=== PATIENT | female | born 1970 | race Caucasian/White ===

== ENCOUNTER 2018-07-07 21:15 | Emergency (ER) | payer MEDICARE, MEDICAID ==
--- NOTE | 2018-07-07 21:24 | EDM.PDOC ---
ED HPI GENERAL MEDICAL PROBLEM - General Chief Complaint: Back Pain or Injury Stated Complaint: LEFT SHOULDER & BACK PAIN Time Seen by Provider: 07/07/18 21:24 - History of Present Illness INITIAL COMMENTS - FREE TEXT/NARRATIVE: 47-year-old female presents emergency room with left upper back pain started this morning when she got up. Patient has not had regular problems like this in the past she's taken a couple of doses of Tylenol without much success. She does not have a number tingling into her left arm but at times she has muscle pain that goes into her left arm. She has no breathing difficulties or shortness of breath no chest pain chest pressure. She denies any trauma. I have reviewed her med list and she's no longer on some of the meds listed including the hydrocodone acetaminophen. Left Posterior Shoulder Pain Score (Numeric/FACES): 10 - Related Data Allergies Allergy/AdvReac Type Severity Reaction Status Date / Time gluten Allergy Itching Verified 04/07/16 09:23 house dust Allergy Itching Verified 04/07/16 09:23 weed pollen Allergy Respiratory Verified 04/07/16 09:23 Distress wheat Allergy Itching Verified 04/07/16 09:23 Home Meds: Home Meds Azelastine [Astelin Nasal Soln] 2 sprays CARLOS BID 07/08/13 [History] Calcium Carbonate/Vitamin D3 [Calcium 600 + Vit D 400] 1 each PO TID 07/08/13 [ History] Docusate Sodium [Doc-Q-Lace] 200 mg PO DAILY 07/08/13 [History] Donepezil [Aricept] 10 mg PO BEDTIME 07/08/13 [History] Fenofibric Acid (Choline) [Fenofibric Acid] 45 mg PO BEDTIME 07/08/13 [History] Ferrous Sulfate 325 mg PO BID 07/08/13 [History] Fish Oil/[place]-3 Fatty Acids [Fish Oil 1,000 MG] 1 each PO MOWEFR 07/08/13 [ History] Folic Acid 800 mcg PO DAILY 07/08/13 [History] Nystatin [Nystop] 30 gm TOP BID PRN 07/08/13 [History] Omeprazole 20 mg PO BID 07/08/13 [History] Triamcinolone Acetonide [Triamcinolone Acetonide 0.5%] 1 dose TOP BID PRN [History] Cholecalciferol (Vitamin D3) [Vitamin D3] 1,000 units PO BID 01/17/14 [History] Cetirizine [ZyrTEC] 10 mg PO DAILY 07/31/15 [History] Vit E Acetate/Gly/Dimeth/Water [Cetaphil Moisturizing Lotion] 1 applic TOP BID 07/31/15 [History] atorvaSTATin [Lipitor] 40 mg PO BEDTIME 07/31/15 [History] diphenhydrAMINE HCl [Complete Allergy] 25 mg PO Q6HR PRN 07/31/15 [History] Acetaminophen [Tylenol] 1 - 2 tab PO Q4HR PRN 04/06/16 [History] D-Methorphan Hb/P-Ephed HCl/Cp [Pedia Relief Cough-Cold] 4 tsp PO Q4HR PRN 04/06 [History] Levothyroxine 150 mcg PO DAILY 04/06/16 [History] Mag Hydrox/Al Hydrox/Simeth [Maalox Maximum Strength Susp] 2 - 4 tsp PO Q2HR PRN 04/06/16 [History] Magnesium Hydroxide [Milk of Magnesia] 2 - 4 tbsp PO ASDIRECTED PRN 04/06/16 [ History] Mineral Oil/I-Prop Myr/Water [Minerin] 1 applic TOP BID 04/06/16 [History] Acetaminophen/HYDROcodone [[place] 325-5 MG] 1 - 2 tab PO Q4H PRN #50 tablet 04/09 [Rx] Bisacodyl [Dulcolax] 5 mg PO DAILY PRN #0 tablet 04/09/16 [Rx] Cyclobenzaprine [Flexeril] 10 mg PO TID PRN #30 tablet 04/09/16 [Rx] Docusate Sodium [Colace] 100 mg PO BID cap 04/09/16 [Rx] Famotidine [Pepcid] 20 mg PO Q12H tablet 04/09/16 [Rx] Magnesium Hydroxide [Milk of Magnesia] 30 ml PO BID PRN #0 cup 04/09/16 [Rx] Multivitamins,Therapeutic [Thera] 1 each PO DAILY tablet 04/09/16 [Rx] Ondansetron [Zofran ODT] 4 mg PO Q6H PRN #20 tab.dis 04/09/16 [Rx] Rivaroxaban [Xarelto] 10 mg PO DAILY #33 tablet 04/09/16 [Rx] Sennosides [Senna] 8.6 mg PO BID PRN #0 tablet 04/09/16 [Rx] Cyclobenzaprine [Flexeril] 10 mg PO BEDTIME #5 tab 07/07/18 [Rx] Past Medical History HEENT History: Reports: Allergic Rhinitis, Hard of Hearing, Other (See Below) Other HEENT History: bilateral hearing loss, perforation of tympanic membrane Cardiovascular History: Reports: High Cholesterol Respiratory History: Reports: Sleep Apnea Gastrointestinal History: Reports: GERD, Other (See Below) Other Gastrointestinal History: celiac disease Musculoskeletal History: Reports: Back Pain, Chronic, Other (See Below) Other Musculoskeletal History: L patellar dislocation, bunions, spondylolitheisis Neurological History: Reports: Alzheimers Disease, Other (See Below) Other Neuro History: defects, mental retardation Psychiatric History: Reports: Learning Disability Endocrine/Metabolic History: Reports: Hypothyroidism, Vitamin D Deficiency, Other (See Below) Other Endocrine/Metabolic History: grave's disease Hematologic History: Reports: Anemia, Other (See Below) Other Hematologic History: b12 deficiency, leukocytopenia Oncologic (Cancer) History: Reports: Lymphoma, Other (See Below) Other Oncologic History: small bowel lymphoma Dermatologic History: Reports: Other (See Below) Other Dermatologic History: lichen planus - Past Surgical History GI Surgical History: Reports: Cholecystectomy, Colonoscopy, EGD, ERCP, Hernia Repair/Other - History Comment History Comment: family thought rods in back- NO rods visialized on lumbar xrays. Proceed with spinal for post op pain ED ROS GENERAL - Review of Systems Review Of Systems: See Below Constitutional: Reports: No Symptoms HEENT: Reports: No Symptoms Respiratory: Reports: No Symptoms Cardiovascular: Reports: No Symptoms GI/Abdominal: Reports: No Symptoms : Reports: No Symptoms ED EXAM, UPPER BACK/NECK PAIN - Physical Exam Exam: See Below Exam Limited By: No Limitations General Appearance: Alert, No Apparent Distress Head Exam: Atraumatic, Normocephalic, Other Neck Exam: Non-Tender, Full Range of Motion, Normal Alignment, Normal Inspection GI/Abdominal: Normal Bowel Sounds, Soft, Non-Tender (Female) Exam: Normal Bimanual Exam Back Exam: Other (At the upper margin of her left scapula she has some very tight muscle palpation of this elicits her symptoms.) Extremities: Normal Inspection, No Pedal Edema Course - Vital Signs Last Recorded V/S: Last Vital Signs Temp 36.3 C 07/07/18 21:23 Pulse 82 07/07/18 21:23 Resp 18 07/07/18 21:23 BP 124/81 07/07/18 21:23 Pulse Ox 95 07/07/18 21:23 - Orders/Labs/Meds Meds: Medications Discontinued Medications Generic Name Dose Route Start Last Admin Trade Name Katherine PRN Reason Stop Dose Admin Cyclobenzaprine HCl 10 mg 07/07/18 21:36 07/07/18 21:40 Flexeril PO 07/07/18 21:37 10 mg ONETIME ONE Administration Departure - Departure Time of Disposition: 21:38 Disposition: Home, Self-Care 01 Clinical Impression: Thoracic myofascial strain - Discharge Information Prescriptions: Cyclobenzaprine [Flexeril] 10 mg PO BEDTIME #5 tab Referrals: PCP,None [Primary Care Provider] - Forms: ED Department Discharge Additional Instructions: Return to the emergency room with any questions problems worsening symptoms. Use Tylenol 650 mg every 4-6 hours as needed for discomfort. Use the Flexeril, this is a muscle relaxant also called cyclobenzaprine, these one at bedtime. Follow-up with your regular doctor at the end of this week or early next week if needed.
[2018-07-07 21:27] VITALS: BP 124/81
[2018-07-07] MEDS ORDERED: Cyclobenzaprine 10 MG Tab PO ONE (21:36)
== END 2018-07-07 21:52 | disposition home or self-care (01) ==
LOC: JD.ED 21:15
DX: S29.012A Strain of muscle and tendon of back wall of thorax, initial encounter (principal); E78.00 Pure hypercholesterolemia, unspecified; K21.9 Gastro-esophageal reflux disease without esophagitis; E03.9 Hypothyroidism, unspecified; D64.9 Anemia, unspecified; Z79.899 Other long term (current) drug therapy; Z91.018 Allergy to other foods; Z91.09 Other allergy status, other than to drugs and biological substances; X58.XXXA Exposure to other specified factors, initial encounter
CPT/HCPCS: 99283; A9270

== ENCOUNTER 2019-04-02 09:36 | Emergency (ER) | payer MEDICARE, MEDICAID ==
[2019-04-02 10:03] VITALS: BP 129/81; PULSE 74
[2019-04-02] MEDS ORDERED: Fluorescein 1 MG Ophth Strip EYERT ONE (10:39)
[2019-04-02] MEDS ORDERED: Proparacaine 0.5% Ophth Soln 15 ML Bottle EYERT ONE (10:39)
--- NOTE | 2019-04-02 10:53 | EDM.PDOC ---
ED HPI GENERAL MEDICAL PROBLEM - General Chief Complaint: Eye Problems Stated Complaint: R EYE REDNESS/SWELLING/PAIN Time Seen by Provider: 04/02/19 10:05 Source of Information: Reports: Patient, Other (carefiver) History Limitations: Reports: No Limitations - History of Present Illness INITIAL COMMENTS - FREE TEXT/NARRATIVE: The patient presents with right eye pain and redness. She woke up with this. 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 She is on refresh eye drops and fluoromethalone drops. She had the surgery in [place] but she sees Dr Navas in [place]. She also says she has some blurry vision with this. She has no headache, fever, chills, cough, congestion or runny nose. She has no chest pain, shortness of breath, abdominal pain, nausea or vomiting. Onset: Gradual Duration: Hour(s): Location: Reports: Other (Right eye) Quality: Reports: Sharp Severity: Moderate Improves with: Reports: None Worsens with: Reports: None Associated Symptoms: Reports: No Other Symptoms Right Eye Pain Score (Numeric/FACES): 5 - Related Data Allergies Allergy/AdvReac Type Severity Reaction Status Date / Time gluten Allergy Itching Verified 04/02/19 10:03 house dust Allergy Itching Verified 04/02/19 10:03 weed pollen Allergy Respiratory Verified 04/02/19 10:03 Distress wheat Allergy Itching Verified 04/02/19 10:03 Home Meds: Home Meds Azelastine [Astelin Nasal Soln] 2 sprays CARLOS BID 07/08/13 [History] Calcium Carbonate/Vitamin D3 [Calcium 600 + Vit D 400] 1 each PO TID 07/08/13 [ History] Docusate Sodium [Doc-Q-Lace] 200 mg PO DAILY 07/08/13 [History] Donepezil [Aricept] 10 mg PO BEDTIME 07/08/13 [History] Ferrous Sulfate 325 mg PO BID 07/08/13 [History] Fish Oil/[place]-3 Fatty Acids [Fish Oil 1,000 MG] 1 each PO MOWEFR 07/08/13 [ History] Folic Acid 800 mcg PO DAILY 07/08/13 [History] Omeprazole 40 mg PO DAILY 07/08/13 [History] Triamcinolone Acetonide [Triamcinolone Acetonide 0.5%] 1 dose TOP BID PRN [History] Cholecalciferol (Vitamin D3) [Vitamin D3] 2,000 units PO BID 01/17/14 [History] Cetirizine [ZyrTEC] 10 mg PO DAILY 07/31/15 [History] atorvaSTATin [Lipitor] 40 mg PO BEDTIME 07/31/15 [History] diphenhydrAMINE HCl [Complete Allergy] 25 mg PO Q6HR PRN 07/31/15 [History] Acetaminophen [Tylenol] 1 - 2 tab PO Q4HR PRN 04/06/16 [History] Chlorpheniramin/Pseudoephed/Dm [Pedia Relief Cough-Cold] 4 tsp PO Q4HR PRN 04/06 [History] Levothyroxine 150 mcg PO ASDIRECTED 04/06/16 [History] Mag Hydrox/Al Hydrox/Simeth [Maalox Maximum Strength Susp] 2 - 4 tsp PO Q2HR PRN 04/06/16 [History] Magnesium Hydroxide [Milk of Magnesia] 2 - 4 tbsp PO ASDIRECTED PRN 04/06/16 [ History] Mineral Oil/I-Prop Myr/Water [Minerin] 1 applic TOP BID 04/06/16 [History] Celecoxib 200 mg PO DAILY 04/02/19 [History] Fluorometholone [Fluorometholone 0.1% Ophth Susp] 1 drop OP QID 04/02/19 [ History] Levothyroxine 75 mcg PO ASDIRECTED 04/02/19 [History] Oseltamivir Phosphate 25 gm PO DAILY 04/02/19 [History] Parab/Cet Alc/Stryl Alc/Pg/Sls [Cetaphil Daily Facial Cleanser] 0 ml TP DAILY [History] Polyvinyl Alcohol/Povidone/Pf [Refresh Classic Eye Drops] 1 drop OP QID [History] Past Medical History HEENT History: Reports: Allergic Rhinitis, Hard of Hearing, Other (See Below) Other HEENT History: bilateral hearing loss, perforation of tympanic membrane Cardiovascular History: Reports: High Cholesterol Respiratory History: Reports: Sleep Apnea Gastrointestinal History: Reports: GERD, Other (See Below) Other Gastrointestinal History: celiac disease Genitourinary History: Reports: None 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 Musculoskeletal History: Reports: Back Pain, Chronic, Other (See Below) Other Musculoskeletal History: L patellar dislocation, bunions, spondylolitheisis Neurological History: Reports: Alzheimers Disease, Other (See Below) Other Neuro History: defects, mental retardation Psychiatric History: Reports: Learning Disability Endocrine/Metabolic History: Reports: Hypothyroidism, Vitamin D Deficiency, Other (See Below) Other Endocrine/Metabolic History: grave's disease Hematologic History: Reports: Anemia, Other (See Below) Other Hematologic History: b12 deficiency, leukocytopenia Immunologic History: Reports: None Oncologic (Cancer) History: Reports: Lymphoma, Other (See Below) Other Oncologic History: small bowel lymphoma Dermatologic History: Reports: Other (See Below) Other Dermatologic History: lichen planus - Infectious Disease History Infectious Disease History: Reports: None - Past Surgical History Head Surgeries/Procedures: Reports: None HEENT Surgical History: Reports: Eye Surgery Other HEENT Surgeries/Procedures: Right Cornea Transplant GI Surgical History: Reports: Cholecystectomy, Colonoscopy, EGD, ERCP, Hernia Repair/Other Musculoskeletal Surgical History: Reports: Other (See Below) Other Musculoskeletal Surgeries/Procedures:: Left Hip Surgery - History Comment History Comment: family thought rods in back- NO rods visialized on lumbar xrays. Proceed with spinal for post op pain Social & Family History - Family History Family Medical History: Noncontributory - Tobacco Use Smoking Status *Q: Never Smoker - Caffeine Use Caffeine Use: Reports: Coffee - Recreational Drug Use Recreational Drug Use: No ED ROS GENERAL - Review of Systems Review Of Systems: See Below Constitutional: Reports: No Symptoms HEENT: Reports: Ear Pain (and redness) Respiratory: Reports: No Symptoms Cardiovascular: Reports: No Symptoms Endocrine: Reports: No Symptoms GI/Abdominal: Reports: No Symptoms : Reports: No Symptoms Musculoskeletal: Reports: No Symptoms ED EXAM GENERAL W FULL EYE - Physical Exam Exam: See Below Exam Limited By: No Limitations General Appearance: Alert, No Apparent Distress Eye Exam: Right Eye: Conjunctival Injection, Bilateral Eye: EOMI, PERRL Visual Acuity (R) 20/: 100 Visual Acuity (L) 20/: 50 With Correction: No IOP (R) in mmH IOP Measure with (Equipment): Other Eyelids: Bilateral: Normal Appearance Conjunctiva & Sclera: Right: Conjunctival Edema Cornea Exam: Bilateral: Other (Sutures to the right cornea with fluress uptake to the right lower eye) Extraocular Movements: Bilateral: Intact Course - Vital Signs Last Recorded V/S: Last Vital Signs Temp 97 F 04/02/19 10:00 Pulse 74 04/02/19 10:00 Resp 18 04/02/19 10:00 BP 129/81 04/02/19 10:00 Pulse Ox 96 04/02/19 10:00 - Orders/Labs/Meds Meds: Medications Discontinued Medications Generic Name Dose Route Start Last Admin Trade Name Katherine PRN Reason Stop Dose Admin Fluorescein Sodium 1 mg 04/02/19 10:39 04/02/19 11:00 Ful-Magi EYERT 04/02/19 10:40 1 mg ONETIME ONE Administration Proparacaine HCl 1 ml 04/02/19 10:39 04/02/19 11:00 Proparacaine 0.5% Ophth Soln EYERT 04/02/19 10:40 1 drop ONETIME ONE Administration - Re-Assessments/Exams Free Text/Narrative Re-Assessment/Exam: 04/02/19 11:48 [facility] called [facility] and Dr Jones was on from [facility]. He wanted the patient down right away to examine her. Departure - Departure Time of Disposition: 11:50 Disposition: Home, Self-Care 01 Condition: Good Clinical Impression: Blurry vision, right eye, Redness of eye, right - Discharge Information *PRESCRIPTION DRUG MONITORING PROGRAM REVIEWED*: Not Applicable *COPY OF PRESCRIPTION DRUG MONITORING REPORT IN PATIENT ARNOLD: Not Applicable Referrals: Marilyn Macario, [employer] MAINTAINER [Primary Care Provider] - Forms: ED Department Discharge Additional Instructions: Go to [facility] to meet with Dr Jones. The address is [address] [place] [address] in [place] Dr Jones's cell phone number is . He would like you to call when you are on the road so he knows when to meet you. Sepsis Event Note - Evaluation Sepsis Screening Result: No Definite Risk - Focused Exam Vital Signs: Vital Signs Temp Pulse Resp BP Pulse Ox 04/02/19 10:00 97 F 74 18 129/81 96 Date Exam was Performed: 04/02/19 Time Exam was Performed: 11:46
== END 2019-04-02 12:05 | disposition home or self-care (01) ==
LOC: JD.ED 09:36
DX: H53.8 Other visual disturbances (principal); H57.89 Other specified disorders of eye and adnexa; E78.00 Pure hypercholesterolemia, unspecified; K21.9 Gastro-esophageal reflux disease without esophagitis; E03.9 Hypothyroidism, unspecified; Z79.899 Other long term (current) drug therapy; Z91.048 Other nonmedicinal substance allergy status; Z91.018 Allergy to other foods
CPT/HCPCS: 99283

== ENCOUNTER 2020-11-24 13:00 | Emergency (ER) | payer MEDICARE, MEDICAID ==
[2020-11-24 13:38] VITALS: BP 129/70; PULSE 64
[2020-11-24] MEDS ORDERED: Ondansetron 4 MG/2 ML SDV IVPUSH ONE (14:00)
[2020-11-24] MEDS ORDERED: Sodium Chloride 0.9% 1,000 ML IV SCH (14:00)
[2020-11-24] MEDS ORDERED: Sodium Chloride 0.9% 10 ML Syringe FLUSH PRN ×2 (14:00→15:31)
[2020-11-24] MEDS ORDERED: HYDROmorphone 0.5 MG/0.5 ML Syringe IVPUSH ONE (14:02)
--- NOTE | 2020-11-24 14:41 | EDM.PDOC ---
ED HPI GENERAL MEDICAL PROBLEM - General Chief Complaint: Abdominal Pain Stated Complaint: ABDOMINAL PAIN Time Seen by Provider: 11/24/20 13:36 Source of Information: Reports: Patient, Provider ([employer] nurses) History Limitations: Reports: No Limitations - History of Present Illness INITIAL COMMENTS - FREE TEXT/NARRATIVE: The patient presents with mid abdominal pain for a couple days. She has a history of a ventral hernia with repair back in 2013. She has some nausea but no vomiting. She has no diarrhea. She has no fever, chills, cough, chest pain or shortness of breath. Onset: Gradual Duration: Day(s): Location: Reports: Abdomen Quality: Reports: Sharp Severity: Moderate Improves with: Reports: None Worsens with: Reports: None Associated Symptoms: Reports: Nausea/Vomiting. Denies: Chest Pain, Cough, Fever/Chills, Headaches, Shortness of Breath Abdominal Pain Score (Numeric/FACES): 10 - Related Data Allergies Allergy/AdvReac Type Severity Reaction Status Date / Time gluten Allergy Itching Verified 11/24/20 13:39 house dust Allergy Itching Verified 11/24/20 13:39 weed pollen Allergy Respiratory Verified 11/24/20 13:39 Distress wheat Allergy Itching Verified 11/24/20 13:39 Home Meds: Home Meds Azelastine [Astelin Nasal Soln] 2 sprays CARLOS BID 07/08/13 [History] Calcium Carbonate/Vitamin D3 [Calcium 600 + Vit D 400] 1 each PO TID 07/08/13 [History] Docusate Sodium [Doc-Q-Lace] 200 mg PO DAILY 07/08/13 [History] Donepezil [Aricept] 10 mg PO BEDTIME 07/08/13 [History] Ferrous Sulfate 325 mg PO BID 07/08/13 [History] Fish Oil/Wayne-3 Fatty Acids [Fish Oil 1,000 MG] 1 each PO MOWEFR 07/08/13 [History] Folic Acid 800 mcg PO DAILY 07/08/13 [History] Omeprazole 40 mg PO DAILY 07/08/13 [History] Triamcinolone Acetonide [Triamcinolone Acetonide 0.5%] 1 dose TOP BID PRN 07/08/13 [History] Cholecalciferol (Vitamin D3) [Vitamin D3] 2,000 units PO BID 01/17/14 [History] Cetirizine [ZyrTEC] 10 mg PO DAILY 07/31/15 [History] atorvaSTATin [Lipitor] 40 mg PO BEDTIME 07/31/15 [History] diphenhydrAMINE HCl [Complete Allergy] 25 mg PO Q6HR PRN 07/31/15 [History] Acetaminophen [Tylenol] 1 - 2 tab PO Q4HR PRN 04/06/16 [History] Chlorpheniramin/Pseudoephed/Dm [Pedia Relief Cough-Cold] 4 tsp PO Q4HR PRN 04/06/16 [History] Levothyroxine 150 mcg PO ASDIRECTED 04/06/16 [History] Mag Hydrox/Aluminum Hyd/Simeth [Maalox Maximum Strength Susp] 2 - 4 tsp PO Q2HR PRN 04/06/16 [History] Magnesium Hydroxide [Milk of Magnesia] 2 - 4 tbsp PO ASDIRECTED PRN 04/06/16 [History] Mineral Oil/I-Prop Myr/Water [Minerin] 1 applic TOP BID 04/06/16 [History] Celecoxib 200 mg PO DAILY 04/02/19 [History] Fluorometholone [Fluorometholone 0.1% Ophth Susp] 1 drop OP QID 04/02/19 [History] Levothyroxine 75 mcg PO ASDIRECTED 04/02/19 [History] Oseltamivir Phosphate 25 gm PO DAILY 04/02/19 [History] Parab/Cet Alc/Stryl Alc/Pg/Sls [Cetaphil Daily Facial Cleanser] 0 ml TP DAILY 04/02/19 [History] Polyvinyl Alcohol/Povidone/Pf [Refresh Classic Eye Drops] 1 drop OP QID 04/02/19 [History] Past Medical History HEENT History: Reports: Allergic Rhinitis, Hard of Hearing, Other (See Below) Other HEENT History: bilateral hearing loss, perforation of tympanic membrane Cardiovascular History: Reports: High Cholesterol Respiratory History: Reports: Sleep Apnea Gastrointestinal History: Reports: GERD, Other (See Below) Other Gastrointestinal History: celiac disease Genitourinary History: Reports: None 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 Musculoskeletal History: Reports: Back Pain, Chronic, Other (See Below) Other Musculoskeletal History: L patellar dislocation, bunions, spondylolitheisis Neurological History: Reports: Alzheimers Disease, Other (See Below) Other Neuro History: defects, mental retardation Psychiatric History: Reports: Learning Disability Endocrine/Metabolic History: Reports: Hypothyroidism, Vitamin D Deficiency, Other (See Below) Other Endocrine/Metabolic History: grave's disease Hematologic History: Reports: Anemia, Other (See Below) Other Hematologic History: b12 deficiency, leukocytopenia Immunologic History: Reports: None Oncologic (Cancer) History: Reports: Lymphoma, Other (See Below) Other Oncologic History: small bowel lymphoma Dermatologic History: Reports: Other (See Below) Other Dermatologic History: lichen planus - Infectious Disease History Infectious Disease History: Reports: MRSA Other Infectious Disease History: MRSA + 05/11/19 (right ear culture) - Past Surgical History Head Surgeries/Procedures: Reports: None HEENT Surgical History: Reports: Eye Surgery Other HEENT Surgeries/Procedures: Right Cornea Transplant GI Surgical History: Reports: Cholecystectomy, Colonoscopy, EGD, ERCP, Hernia Repair/Other Musculoskeletal Surgical History: Reports: Other (See Below) Other Musculoskeletal Surgeries/Procedures:: Left Hip Surgery - History Comment History Comment: family thought rods in back- NO rods visialized on lumbar xrays. Proceed with spinal for post op pain Social & Family History - Family History Family Medical History: No Pertinent Family History - Tobacco Use Tobacco Use Status *Q: Never Tobacco User Second Hand Smoke Exposure: No - Caffeine Use Caffeine Use: Reports: Coffee, Energy Drinks, Soda - Recreational Drug Use Recreational Drug Use: No ED ROS GENERAL - Review of Systems Review Of Systems: See Below Constitutional: Reports: No Symptoms HEENT: Reports: No Symptoms Respiratory: Reports: No Symptoms Cardiovascular: Reports: No Symptoms Endocrine: Reports: No Symptoms GI/Abdominal: Reports: Abdominal Pain, Nausea. Denies: Diarrhea, Vomiting : Reports: No Symptoms Musculoskeletal: Reports: No Symptoms ED EXAM, GI/ABD - Physical Exam Exam: See Below Exam Limited By: No Limitations General Appearance: Alert, No Apparent Distress Ears: Normal External Exam Nose: Normal Inspection Head: Atraumatic, Normocephalic Neck: Normal Inspection Respiratory/Chest: No Respiratory Distress, Lungs Clear, Normal Breath Sounds Cardiovascular: Regular Rate, Rhythm, No Edema, No Murmur GI/Abdominal Exam: Soft, No Organomegaly, No Mass, Tender (Mild to moderate pain to the mid abdomen. Lower ventral scar.) Course - Vital Signs Last Recorded V/S: Last Vital Signs Temp 96.9 F 11/24/20 13:37 Pulse 64 11/24/20 13:37 Resp 18 11/24/20 13:37 BP 129/70 11/24/20 13:37 Pulse Ox 96 11/24/20 13:37 - Orders/Labs/Meds Orders: Active Orders 24 hr Category Date Time Status Cardiac Monitoring [RC] . DIRECTED Care 11/24/20 14:00 Active Peripheral IV Care [RC] . DIRECTED Care 11/24/20 14:00 Active Abdomen Pelvis w Cont [CT] Stat Exams 11/24/20 14:01 Taken UA W/MICROSCOPIC [URIN] Stat Lab 11/24/20 14:45 Received Sodium Chloride 0.9% [Normal Saline] 1,000 ml Med 11/24/20 14:00 Active IV .BOLUS Sodium Chloride 0.9% [Saline Flush] Med 11/24/20 14:00 Active 10 ml FLUSH ASDIRECTED PRN Sodium Chloride 0.9% [Saline Flush] Med 11/24/20 15:31 Active 10 ml FLUSH ONETIME PRN ED Antiemetic Medication Reflex [OM.PC] Stat Oth 11/24/20 14:00 Ordered Peripheral IV Insertion Adult [OM.PC] Stat Oth 11/24/20 14:00 Ordered Medication Orders Sodium Chloride (Normal Saline) 1,000 mls @ 1,000 mls/hr IV .BOLUS ZOYA Last Admin: 11/24/20 14:55 Dose: 1,000 mls/hr Documented by: MICAH Sodium Chloride (Sodium Chloride 0.9% 10 Ml Syringe) 10 ml FLUSH ASDIRECTED PRN PRN Reason: Keep Vein Open Last Admin: 11/24/20 15:15 Dose: 10 ml Documented by: PERI Sodium Chloride (Sodium Chloride 0.9% 10 Ml Syringe) 10 ml FLUSH ONETIME PRN PRN Reason: Keep Vein Open Last Admin: 11/24/20 15:34 Dose: 10 ml Documented by: JUAN Labs: Laboratory Tests 11/24/20 11/24/20 Range/Units 15:15 15:15 WBC 6.08 (3.98-10.04) K/mm3 RBC 3.99 (3.98-5.22) M/mm3 Hgb 13.6 D (11.2-15.7) gm/dl Hct 40.4 (34.1-44.9) % MCV 101.3 H (79.4-94.8) fl MCH 34.1 H (25.6-32.2) pg MCHC 33.7 (32.2-35.5) g/dl RDW Std Deviation 52.5 H (36.4-46.3) fL Plt Count 246 D (182-369) K/mm3 MPV 9.3 L (9.4-12.3) fl Neut % (Auto) 56.7 (34.0-71.1) % Lymph % (Auto) 32.4 (19.3-51.7) % [place] % (Auto) 9.2 (4.7-12.5) % Eos % (Auto) 1.2 (0.7-5.8) Baso % (Auto) 0.5 (0.1-1.2) % Neut # (Auto) 3.45 (1.56-6.13) K/mm3 Lymph # (Auto) 1.97 (1.18-3.74) K/mm3 [place] # (Auto) 0.56 H (0.24-0.36) K/mm3 Eos # (Auto) 0.07 (0.04-0.36) K/mm3 Baso # (Auto) 0.03 (0.01-0.08) K/mm3 Sodium 143 (136-145) mEq/L Potassium 4.2 (3.5-5.1) mEq/L Chloride 108 H (98-107) mEq/L Carbon Dioxide 28 (21-32) mEq/L Anion Gap 11.2 (5-15) BUN 17 (7-18) mg/dL Creatinine 0.8 (0.55-1.02) mg/dL Est Cr Clr Drug Dosing 61.77 mL/min Estimated GFR (MDRD) > 60 (>60) mL/min BUN/Creatinine Ratio 21.3 H (14-18) Glucose 99 (70-99) mg/dL Calcium 8.0 L (8.5-10.1) mg/dL Total Bilirubin 0.2 (0.2-1.0) mg/dL AST 17 (15-37) U/L ALT 29 (14-59) U/L Alkaline Phosphatase 47 (46-116) U/L Total Protein 6.5 (6.4-8.2) g/dl Albumin 3.2 L (3.4-5.0) g/dl Globulin 3.3 gm/dL Albumin/Globulin Ratio 1.0 (1-2) Lipase 105 (73-393) U/L Meds: Medications Generic Name Dose Route Start Last Admin Trade Name Freq PRN Reason Stop Dose Admin Sodium Chloride 1,000 mls @ 1,000 mls/hr 11/24/20 14:00 11/24/20 14:55 Normal Saline IV 1,000 mls/hr .BOLUS ZOYA Administration Sodium Chloride 10 ml 11/24/20 14:00 11/24/20 15:15 Sodium Chloride 0.9% 10 Ml Syringe FLUSH 10 ml ASDIRECTED PRN Administration Keep Vein Open Sodium Chloride 10 ml 11/24/20 15:31 11/24/20 15:34 Sodium Chloride 0.9% 10 Ml Syringe FLUSH 10 ml ONETIME PRN Administration Keep Vein Open Discontinued Medications Generic Name Dose Route Start Last Admin Trade Name Adamq PRN Reason Stop Dose Admin Diatrizoate Meglum/Diatrizoate Sod 60 ml 11/24/20 15:31 11/24/20 15:34 Diatrizoate Meglumine/Diatrizoate Sodium 37% 120 Ml Bottle PO 11/24/20 15:32 60 ml ONETIME ONE Administration Hydromorphone HCl 0.25 mg 11/24/20 14:02 11/24/20 14:53 Hydromorphone 0.5 Mg/0.5 Ml Syringe IVPUSH 11/24/20 14:03 0.25 mg ONETIME ONE Administration Iopamidol 100 ml 11/24/20 15:31 11/24/20 15:34 Iopamidol 612 Mg/Ml 100 Ml Bottle IVPUSH 11/24/20 15:32 100 ml ONETIME ONE Administration Ondansetron HCl 4 mg 11/24/20 14:00 11/24/20 14:48 Ondansetron 4 Mg/2 Ml Sdv IVPUSH 11/24/20 14:01 4 mg ONETIME ONE Administration - Re-Assessments/Exams Free Text/Narrative Re-Assessment/Exam: 11/24/20 14:40 I ordered an IV NS 1L bolus, zofran 4mg IV, dilaudid 0.25mg IV, labs, UA and a CT of her abdomen and pelvis. 11/24/20 16:20 Her labs look good. Her CT shows nothing acute. There is a small fat containing ventral hernia and that should not cause the pain. She feels better. I will discharge her home. Departure - Departure Time of Disposition: 16:20 Disposition: Home, Self-Care 01 Condition: Good Clinical Impression: Abdominal pain Qualifiers: Abdominal location: generalized Qualified Code(s): R10.84 - Generalized abdominal pain - Discharge Information *PRESCRIPTION DRUG MONITORING PROGRAM REVIEWED*: Not Applicable *COPY OF PRESCRIPTION DRUG MONITORING REPORT IN PATIENT ARNOLD: Not Applicable Referrals: Marilyn Macario TIE LOADER [Primary Care Provider] - 1 Week Forms: ED Department Discharge Additional Instructions: Drink plenty of fluids. Take tylenol or motrin as needed for pain. There was a very small fat containing hernia in the front of the abdomen. This should not be causing Roseanne's pain. Follow up with Marilyn and please return if you are worse. Sepsis Event Note (ED) - Focused Exam Vital Signs: Vital Signs Temp Pulse Resp BP Pulse Ox 11/24/20 13:37 96.9 F 64 18 129/70 96 - My Orders Last 24 Hours: My Active Orders 11/24/20 14:00 Cardiac Monitoring [RC] . DIRECTED Peripheral IV Care [RC] . DIRECTED Sodium Chloride 0.9% [Normal Saline] 1,000 ml IV .BOLUS Sodium Chloride 0.9% [Saline Flush] 10 ml FLUSH ASDIRECTED PRN ED Antiemetic Medication Reflex [OM.PC] Stat Peripheral IV Insertion Adult [OM.PC] Stat 11/24/20 14:01 Abdomen Pelvis w Cont [CT] Stat 11/24/20 14:45 UA W/MICROSCOPIC [URIN] Stat 11/24/20 15:31 Sodium Chloride 0.9% [Saline Flush] 10 ml FLUSH ONETIME PRN - Assessment/Plan Last 24 Hours: My Active Orders 11/24/20 14:00 Cardiac Monitoring [RC] . DIRECTED Peripheral IV Care [RC] . DIRECTED Sodium Chloride 0.9% [Normal Saline] 1,000 ml IV .BOLUS Sodium Chloride 0.9% [Saline Flush] 10 ml FLUSH ASDIRECTED PRN ED Antiemetic Medication Reflex [OM.PC] Stat Peripheral IV Insertion Adult [OM.PC] Stat 11/24/20 14:01 Abdomen Pelvis w Cont [CT] Stat 11/24/20 14:45 UA W/MICROSCOPIC [URIN] Stat 11/24/20 15:31 Sodium Chloride 0.9% [Saline Flush] 10 ml FLUSH ONETIME PRN
[2020-11-24] MEDS ORDERED: Diatrizoate Meglumine/Diatrizoate Sodium 37% 120 ML Bottle PO ONE (15:31)
[2020-11-24] MEDS ORDERED: Iopamidol 612 MG/ML 100 ML Bottle IVPUSH ONE (15:31)
--- NOTE | 2020-11-25 08:14 | CT ---
CT abdomen and pelvis Technique: Multiple axial sections were obtained from above the dome of the diaphragm inferiorly through the pubic symphysis. Intravenous and oral contrast were utilized. Delayed images were also obtained. Reconstructed coronal and sagittal images were obtained. Comparison: Prior CT abdomen study of 06/02/13. Findings: Visualized lung bases show nothing acute. Liver contains no focal parenchymal abnormality. Spleen size is normal. Adrenal glands show no nodule. Pancreas shows no discrete abnormality. Kidneys show symmetric contrast enhancement. No hydronephrosis or mass is seen. Delayed images show contrast throughout the ureters as well as within the bladder. Abdominal aorta shows no aneurysm. No retroperitoneal adenopathy or mesenteric abnormalities are seen. Two fat containing anterior abdominal wall hernias are noted above the umbilicus. No other abdominal wall hernias are seen. Prior left hip prosthesis is noted. Degenerative change is seen within the spine with spondylolisthesis at L3-4 and L5-S1 as well as fusion at the L5-S1 disc. Severe disc space narrowing is noted at the L3-4 disc. No bony change is seen from previous exam. Impression: 1. Two small fat-containing abdominal wall hernias. 2. Other findings as noted above which are chronic. Nothing acute is appreciated. Diagnostic code #2 I agree with preliminary report from [facility], finalized on 11/24/20, 5:09 PM CDT, code 1
== END 2020-11-24 16:35 | disposition home or self-care (01) ==
LOC: JD.ED 13:00
DX: R10.84 Generalized abdominal pain (principal); E78.00 Pure hypercholesterolemia, unspecified; K21.9 Gastro-esophageal reflux disease without esophagitis; E03.9 Hypothyroidism, unspecified; Z91.018 Allergy to other foods; Z91.09 Other allergy status, other than to drugs and biological substances; Z91.49 Other personal history of psychological trauma, not elsewhere classified
CPT/HCPCS: 36415; 74177; 80053; 81001; 83690; 85025; 96374; 96375; 99284; J1170; J2405; J7030; Q9963; Q9967

== ENCOUNTER 2021-10-23 07:29 | Inpatient (IN) | payer MEDICARE, MEDICAID ==
[2021-10-23] MEDS ORDERED: Midazolam 1 MG/ML 2 ML SDV IVPUSH ONE ×2 (09:01→11:59)
[2021-10-23 09:08] LABS: ESTIMATED GFR 110 mL/min (>60)
[2021-10-23] MEDS ORDERED: Ondansetron 4 MG Tab.DIS PO ONE ×2 (09:59→10:00)
[2021-10-23] MEDS ORDERED: Lactated Ringers 1,000 ML IV ONE (10:22)
[2021-10-23] MEDS ORDERED: Midazolam 1 MG/ML 2 ML SDV ONE ×2 (11:21→12:01)
[2021-10-23] MEDS ORDERED: Magnesium Sulfate/Water 2 GM/50 ML BAG IV ONE (12:00)
[2021-10-23] MEDS ORDERED: Ondansetron 4 MG Tab.DIS PO PRN (12:00)
[2021-10-23] MEDS ORDERED: LORazepam 0.5 MG Tab PO PRN (12:00)
[2021-10-23] MEDS ORDERED: Ondansetron 4 MG/2 ML SDV IV PRN (12:00)
[2021-10-23] MEDS ORDERED: cefTRIAXone 2 GM in Sodium Chloride 0.9% 100 ML IV SCH (14:15)
[2021-10-23] MEDS: Calcium Carbonate/Vitamin D3 600 MG-200 Units Tab PO SCH ×2 (15:00→22:00)
[2021-10-23] MEDS ORDERED: LORazepam 2 MG/ML SDV IVPUSH ONE ×2 (15:00→15:55)
[2021-10-23] MEDS ORDERED: Gadobenate Dimeglumine 529 MG/ML 15 ML SDV IVPUSH ONE (15:35)
[2021-10-23] MEDS ORDERED: Sodium Chloride 0.9% 10 ML Syringe FLUSH SCH (15:45)
[2021-10-23] MEDS ORDERED: LORazepam 2 MG/ML SDV ONE (15:56)
[2021-10-23] MEDS: Sodium Chloride 0.9% 1,000 ML IV SCH ×2 (17:25→18:47)
[2021-10-23] MEDS ORDERED: Temazepam 7.5 MG Cap PO PRN (21:00)
[2021-10-23] MEDS: AZELASTINE 0.1% NASBOTH SCH (21:00)
[2021-10-23] MEDS: Donepezil 10 MG Tab PO SCH (22:00)
[2021-10-23] MEDS: atorvaSTATin 40 MG Tab PO SCH (22:00)
[2021-10-24] MEDS: atorvaSTATin 40 MG Tab PO SCH (03:36)
[2021-10-24] MEDS: Calcium Carbonate/Vitamin D3 600 MG-200 Units Tab PO SCH ×2 (03:37→09:05)
[2021-10-24] MEDS: Donepezil 10 MG Tab PO SCH (03:37)
[2021-10-24] MEDS ORDERED: Levothyroxine 100 MCG Tab PO SCH (06:00)
[2021-10-24] MEDS: Sodium Chloride 0.9% 1,000 ML IV SCH (06:35)
[2021-10-24] MEDS ORDERED: Pantoprazole 40 MG Tab.CR PO SCH (07:00)
[2021-10-24] MEDS ORDERED: Ferrous Sulfate 324 MG Tab.EC PO SCH (09:00)
[2021-10-24] MEDS ORDERED: Enoxaparin 40 MG/0.4 ML Syringe SUBCUT SCH (09:00)
[2021-10-24] MEDS ORDERED: Docusate Sodium 100 MG Cap PO SCH (09:00)
[2021-10-24] MEDS ORDERED: Cetirizine 10 MG Tab PO SCH (09:00)
[2021-10-24] MEDS ORDERED: Non-Formulary Medication 1 Each (Celecoxib [Celecoxib] 200 MG Capsule) PO SCH (09:00)
[2021-10-24] MEDS ORDERED: prednisoLONE Acetate 1% Ophth Susp 5 ML Bottle EYERT SCH (09:00)
[2021-10-24] MEDS: AZELASTINE 0.1% NASBOTH SCH (09:06)
[2021-10-24] MEDS ORDERED: Potassium Chloride 20 MEQ Tab.ER PO ONE (10:00)
[2021-10-24 10:17] VITALS: BP 116/64; PULSE 66
[2021-10-24] MEDS ORDERED: REMDESIVIR 200 MG in Sodium Chloride 0.9% 250 ML IV ONE (12:45)
[2021-10-25] MEDS ORDERED: REMDESIVIR 100 MG in Sodium Chloride 0.9% 100 ML IV SCH (12:45)
== END 2021-10-24 13:14 | disposition other institution (70) | DRG 641 ==
LOC: JD.ED 07:29 → JD.MS 12:06
PROVIDERS: ADMIT Internal Medicine; ATTEND Internal Medicine
DX: E87.1 Hypo-osmolality and hyponatremia (principal); R41.0 Disorientation, unspecified; R11.2 Nausea with vomiting, unspecified; Q90.9 Down syndrome, unspecified; J30.9 Allergic rhinitis, unspecified; E78.00 Pure hypercholesterolemia, unspecified; G47.30 Sleep apnea, unspecified; E83.42 Hypomagnesemia; K90.0 Celiac disease; E86.9 Volume depletion, unspecified; E78.5 Hyperlipidemia, unspecified; E03.9 Hypothyroidism, unspecified; C85.93 Non-Hodgkin lymphoma, unspecified, intra-abdominal lymph nodes; Z91.02 Food additives allergy status; G47.33 Obstructive sleep apnea (adult) (pediatric); Z20.822 Contact with and (suspected) exposure to COVID-19; K21.9 Gastro-esophageal reflux disease without esophagitis; H91.93 Unspecified hearing loss, bilateral; G30.9 Alzheimer's disease, unspecified; F02.80 Dementia in other diseases classified elsewhere, unspecified severity, without behavioral disturbance, psychotic disturbance, mood disturbance, and anxiety; Z86.14 Personal history of Methicillin resistant Staphylococcus aureus infection; Z79.899 Other long term (current) drug therapy; Z79.890 Hormone replacement therapy; Z94.7 Corneal transplant status; Z90.49 Acquired absence of other specified parts of digestive tract; Z87.19 Personal history of other diseases of the digestive system; Z98.890 Other specified postprocedural states
CPT/HCPCS: 36415; 70450; 71045; 74176; 80053; 81001; 83735; 83935; 84300; 85025; 85610; 93005; A9270; J2250; J7120; 70551; 70551-26; 80048; 87081; 94761; 96361; 96374; 96376; 99285-25; A9577; J0696; J1650; J2060; J3475; J3490; J7030; U0002

== ENCOUNTER 2021-11-20 06:16 | Day surgery (SDC) | payer MEDICARE, MEDICAID ==
[~2021-11-20 06:16] MED LIST: Acetaminophen 325 MG Tab PO SCH; Lactated Ringers 1,000 ML IV SCH; Lidocaine 1%/Sod Bicarbonate in NS 8.4% 1 ML Syringe IDERM PRN; Pregabalin 25 MG Cap PO SCH; Sodium Chloride 0.9% 10 ML Syringe FLUSH PRN; Sodium Chloride 0.9% 10 ML Syringe FLUSH SCH; oxyCODONE ER 10 MG TAB.ER PO SCH
[2021-11-20] MEDS ORDERED: Lidocaine 1% 2 ML ONE (06:50)
[2021-11-20] MEDS ORDERED: Midazolam 1 MG/ML 2 ML SDV ONE (06:51)
[2021-11-20] MEDS ORDERED: fentaNYL 100 MCG/2 ML SDV ONE (06:51)
[2021-11-20] MEDS ORDERED: Propofol 200 MG/20 ML SDV ONE (06:51)
[2021-11-20] MEDS ORDERED: ceFAZolin 2 GM Vial ONE (07:03)
[2021-11-20] MEDS ORDERED: ePHEDrine 50 MG/ML SDV ONE (07:21)
[2021-11-20] MEDS ORDERED: Phenylephrine 1% 10 MG/ML SDV ONE (07:49)
[2021-11-20] MEDS ORDERED: Phenylephrine HCl In 0.9% NaCl 1 MG/10 ML Vial ONE (07:49)
[2021-11-20] MEDS: Vancomycin 1 GM SDV ONE ×2 (08:02→08:41)
[2021-11-20] MEDS: Morphine 8 MG, EPINEPHrine 0.3 MG, Cefuroxime 750 MG, Ketorolac 30 MG, Sodium Chloride ... PRN ×10 (08:03→08:35)
[2021-11-20] MEDS ORDERED: Ondansetron 4 MG/2 ML SDV IVPUSH PRN (08:30)
[2021-11-20] MEDS ORDERED: HYDROmorphone 0.5 MG/0.5 ML Syringe IVPUSH PRN (08:30)
[2021-11-20] MEDS ORDERED: fentaNYL 100 MCG/2 ML SDV IVPUSH PRN (08:30)
[2021-11-20] MEDS ORDERED: Bupivacaine 0.25% 10 ML SDV ONE (09:13)
[2021-11-20] MEDS ORDERED: Acetaminophen/HYDROcodone 325-5 MG Tab PO ONE (10:30)
[2021-11-20 14:22] VITALS: BP 108/60; PULSE 68
== END 2021-11-20 12:22 | disposition home or self-care (01) ==
LOC: JD.SDS 06:16
PROVIDERS: ATTEND Orthopaedic Surgery
DX: M17.12 Unilateral primary osteoarthritis, left knee (principal); K21.9 Gastro-esophageal reflux disease without esophagitis; E03.9 Hypothyroidism, unspecified; E61.1 Iron deficiency; E78.2 Mixed hyperlipidemia; G47.33 Obstructive sleep apnea (adult) (pediatric); E55.9 Vitamin D deficiency, unspecified; G30.9 Alzheimer's disease, unspecified; Z79.899 Other long term (current) drug therapy; Z98.890 Other specified postprocedural states; Z90.49 Acquired absence of other specified parts of digestive tract; Z79.890 Hormone replacement therapy
CPT/HCPCS: 0055T; 27447; 73560; 97116; 97161; A9270; C1713; C1776; J0171; J0690; J0697; J1885; J2250; J2270; J2704; J3010; J3370; J3490; J7120; 01402; 64447; 76942; J2370

== ENCOUNTER 2022-02-01 11:02 | Emergency (ER) | payer MEDICARE, MEDICAID ==
[2022-02-01 12:08] VITALS: BP 109/60; PULSE 63
[2022-02-01] MEDS ORDERED: Ciprofloxacin 0.3% Ophth Soln 5 ML Bottle EYELF ONE (12:29)
== END 2022-02-01 12:50 | disposition home or self-care (01) ==
LOC: JD.ED 11:02
DX: H57.89 Other specified disorders of eye and adnexa (principal); E78.00 Pure hypercholesterolemia, unspecified; Z91.018 Allergy to other foods; Z91.048 Other nonmedicinal substance allergy status; Z79.899 Other long term (current) drug therapy
CPT/HCPCS: 99282; A9270

== ENCOUNTER 2022-10-21 08:17 | Day surgery (SDC) | payer MEDICARE, MEDICAID ==
[~2022-10-21 08:17] MED LIST changes: -Acetaminophen 325 MG Tab PO SCH; -Lidocaine 1%/Sod Bicarbonate in NS 8.4% 1 ML Syringe IDERM PRN; -Pregabalin 25 MG Cap PO SCH; -oxyCODONE ER 10 MG TAB.ER PO SCH
[2022-10-21] MEDS ORDERED: fentaNYL 100 MCG/2 ML SDV ONE (09:34)
[2022-10-21] MEDS ORDERED: Propofol 200 MG/20 ML SDV ONE (09:34)
[2022-10-21] MEDS ORDERED: Lidocaine 1% 10 ML MDV ONE (09:42)
[2022-10-21] MEDS ORDERED: ePHEDrine 50 MG/ML SDV ONE (10:23)
[2022-10-21] MEDS ORDERED: Dexmedetomidine 200 MCG/2 ML SDV ONE (13:22)
[2022-10-21 14:00] VITALS: BP 111/60; PULSE 67
== END 2022-10-21 11:37 | disposition home or self-care (01) ==
LOC: JD.SDS 08:17
PROVIDERS: ATTEND Specialist
DX: L92.3 Foreign body granuloma of the skin and subcutaneous tissue (principal); L90.5 Scar conditions and fibrosis of skin; L08.9 Local infection of the skin and subcutaneous tissue, unspecified; K90.0 Celiac disease; F02.80 Dementia in other diseases classified elsewhere, unspecified severity, without behavioral disturbance, psychotic disturbance, mood disturbance, and anxiety; I81 Portal vein thrombosis; Q90.9 Down syndrome, unspecified; K21.9 Gastro-esophageal reflux disease without esophagitis; E78.00 Pure hypercholesterolemia, unspecified; E83.42 Hypomagnesemia; E87.1 Hypo-osmolality and hyponatremia; E03.9 Hypothyroidism, unspecified; E61.1 Iron deficiency; D72.819 Decreased white blood cell count, unspecified; R22.2 Localized swelling, mass and lump, trunk; H90.6 Mixed conductive and sensorineural hearing loss, bilateral; G47.33 Obstructive sleep apnea (adult) (pediatric); Z91.048 Other nonmedicinal substance allergy status; Z79.890 Hormone replacement therapy; Z79.899 Other long term (current) drug therapy; E53.8 Deficiency of other specified B group vitamins; Z86.69 Personal history of other diseases of the nervous system and sense organs; Z98.49 Cataract extraction status, unspecified eye; Z90.89 Acquired absence of other organs; Z90.49 Acquired absence of other specified parts of digestive tract; Z98.890 Other specified postprocedural states
CPT/HCPCS: 00812; J2704; J3010; J3490; J7120

== ENCOUNTER 2022-10-27 17:48 | Observation (INO) | payer MEDICARE, MEDICAID ==
[2022-10-27] MEDS ORDERED: Ondansetron 4 MG/2 ML SDV IVPUSH PRN (20:18)
[2022-10-27] MEDS: Sodium Chloride 0.9% 1,000 ML IV SCH (22:03)
[2022-10-27] MEDS: Donepezil 10 MG Tab PO SCH (22:20)
[2022-10-27] MEDS ORDERED: Ondansetron 4 MG Tab.DIS PO PRN (23:01)
[2022-10-27] MEDS ORDERED: Acetaminophen 325 MG Tab PO PRN (23:05)
[2022-10-28] MEDS: Pantoprazole 40 MG Tab.CR PO SCH (05:09)
[2022-10-28 05:26] LABS: BASOPHILS ABSOLUTE AUTO 0.02 K/mm3 (0.01-0.08); BASOPHILS PERCENT AUTO 0.5 % (0.1-1.2); EOSINOPHILS ABSOLUTE AUTO 0.03 K/mm3 (0.04-0.36); EOSINOPHILS PERCENT AUTO 0.8 (0.7-5.8); HEMATOCRIT 36.4 % (34.1-44.9); HEMOGLOBIN 12.9 gm/dl (11.2-15.7); LYMPHOCYTES ABSOLUTE AUTO 1.72 K/mm3 (1.18-3.74); LYMPHOCYTES PERCENT AUTO 43.4 % (19.3-51.7); MEAN CORPUSCULAR HEMOGLOBIN 34.7 pg (25.6-32.2); MEAN CORPUSCULAR HGB CONC 35.4 g/dl (32.2-35.5); MEAN CORPUSCULAR VOLUME 97.8 fl (79.4-94.8); MEAN PLATELET VOLUME 9.4 fl (9.4-12.3); MONOCYTES ABSOLUTE AUTO 0.39 K/mm3 (0.24-0.36); MONOCYTES PERCENT AUTO 9.8 % (4.7-12.5); NEUTROPHILS PERCENT AUTO 45.5 % (34.0-71.1); PLATELET COUNT,PLT 221 K/mm3 (182-369); RED BLOOD CELL COUNT 3.72 M/mm3 (3.98-5.22); WHITE BLOOD CELL COUNT,WBC 3.96 K/mm3 (3.98-10.04)
[2022-10-28] MEDS ORDERED: Levothyroxine 88 MCG Tab PO SCH (06:00)
[2022-10-28 06:03] LABS: ANION GAP 11.5 (5-15); BUN/CREATININE RATIO 11.4 (14-18); CALCIUM 8.2 mg/dL (8.5-10.1); CREATININE 0.7 mg/dL (0.55-1.02); EST CRCL DRUG DOSING (CG) 69.06 mL/min; MAGNESIUM 1.7 mg/dL (1.8-2.4); POTASSIUM,K 3.5 mEq/L (3.5-5.1)
[2022-10-28] MEDS: Sodium Chloride 0.9% 1,000 ML IV SCH (06:59)
[2022-10-28] MEDS: Cetirizine 10 MG Tab PO SCH (08:04)
[2022-10-28] MEDS: Folic Acid 1 MG Tab PO SCH (08:04)
[2022-10-28] MEDS: Celecoxib 100 MG Cap PO SCH (08:04)
[2022-10-28] MEDS: Calcium Carbonate/Vitamin D3 600 MG-200 Units Tab PO SCH ×3 (08:04→21:00)
[2022-10-28] MEDS: Docusate Sodium 100 MG Cap PO SCH ×2 (08:05→21:00)
[2022-10-28] MEDS: prednisoLONE Acetate 1% Ophth Susp 5 ML Bottle EYERT SCH (08:23)
[2022-10-28] MEDS ORDERED: Enoxaparin 40 MG/0.4 ML Syringe SUBCUT SCH (09:00)
[2022-10-28] MEDS ORDERED: Dicyclomine 10 MG Cap PO PRN (09:14)
[2022-10-28] MEDS ORDERED: Carboxymethylcellulose Sodium 1% Ophth Gel 15 ML Bottle EYEBOTH PRN (09:14)
[2022-10-28] MEDS ORDERED: Magnesium Sulfate/Water 2 GM in Premix Bag 1 BAG IV ONE (09:45)
[2022-10-28] MEDS ORDERED: atorvaSTATin 40 MG Tab PO SCH (21:00)
[2022-10-28] MEDS ORDERED: Carboxymethylcellulose Sodium 1% Ophth Gel 15 ML Bottle EYERT SCH (21:00)
[2022-10-28] MEDS ORDERED: Donepezil 10 MG Tab PO SCH (21:00)
[2022-10-28] MEDS: Donepezil 10 MG Tab PO SCH (21:00)
[2022-10-29 05:41] LABS: ANION GAP 10.9 (5-15); CALCIUM 8.5 mg/dL (8.5-10.1); CREATININE 0.9 mg/dL (0.55-1.02); EST CRCL DRUG DOSING (CG) 53.71 mL/min; POTASSIUM,K 3.9 mEq/L (3.5-5.1)
[2022-10-29] MEDS: Pantoprazole 40 MG Tab.CR PO SCH (05:56)
[2022-10-29] MEDS ORDERED: Levothyroxine 100 MCG Tab PO SCH (06:00)
[2022-10-29] MEDS ORDERED: Cholecalciferol (Vitamin D3) 25 MCG Tab PO SCH (09:00)
[2022-10-29] MEDS ORDERED: Ferrous Sulfate 324 MG Tab.EC PO SCH (09:00)
[2022-10-29 09:04] VITALS: BP 114/67; PULSE 61
[2022-10-29] MEDS: Celecoxib 100 MG Cap PO SCH (10:07)
[2022-10-29] MEDS: Calcium Carbonate/Vitamin D3 600 MG-200 Units Tab PO SCH (10:08)
[2022-10-29] MEDS: Folic Acid 1 MG Tab PO SCH (10:08)
[2022-10-29] MEDS: Docusate Sodium 100 MG Cap PO SCH (10:08)
[2022-10-29] MEDS: Cetirizine 10 MG Tab PO SCH (10:08)
[2022-10-29] MEDS: prednisoLONE Acetate 1% Ophth Susp 5 ML Bottle EYERT SCH (10:13)
== END 2022-10-29 11:00 | disposition other institution (70) ==
LOC: JD.ED 17:48 → JD.MS 20:18 → INTOOBSV 20:18
PROVIDERS: ADMIT Emergency Medicine; ATTEND Emergency Medicine
DX: E87.1 Hypo-osmolality and hyponatremia (principal); R11.2 Nausea with vomiting, unspecified; Q90.9 Down syndrome, unspecified; E83.42 Hypomagnesemia; E86.9 Volume depletion, unspecified; K52.9 Noninfective gastroenteritis and colitis, unspecified; E78.5 Hyperlipidemia, unspecified; G47.30 Sleep apnea, unspecified; K21.9 Gastro-esophageal reflux disease without esophagitis; G30.9 Alzheimer's disease, unspecified; E03.9 Hypothyroidism, unspecified; E05.00 Thyrotoxicosis with diffuse goiter without thyrotoxic crisis or storm; D64.9 Anemia, unspecified; M54.50 Low back pain, unspecified; H91.93 Unspecified hearing loss, bilateral; G89.29 Other chronic pain; D51.9 Vitamin B12 deficiency anemia, unspecified; F02.80 Dementia in other diseases classified elsewhere, unspecified severity, without behavioral disturbance, psychotic disturbance, mood disturbance, and anxiety; D72.829 Elevated white blood cell count, unspecified; Z79.82 Long term (current) use of aspirin; Z79.899 Other long term (current) drug therapy; Z91.048 Other nonmedicinal substance allergy status; Z91.09 Other allergy status, other than to drugs and biological substances; Z91.018 Allergy to other foods; Z90.49 Acquired absence of other specified parts of digestive tract; Z98.890 Other specified postprocedural states
CPT/HCPCS: 36415; 70450; 80048; 80053; 81001; 83690; 83735; 85025; 87641; 93005; 96361; 96374; 96375; 99284; 99285; A9270; J1170; J1200; J2405; J2765; J3475; J3490; J7030

== ENCOUNTER 2023-02-24 17:23 | Emergency (ER) | payer MEDICARE, MEDICAID ==
[2023-02-24] MEDS ORDERED: Sodium Chloride 0.9% 10 ML Syringe FLUSH PRN (18:11)
[2023-02-24] MEDS ORDERED: Sodium Chloride 0.9% 1,000 ML IV ONE (18:19)
[2023-02-24 18:20] LABS: BASOPHILS PERCENT AUTO 0.2 % (0.0-1.0); EOSINOPHILS PERCENT AUTO 0.1 % (0.0-6.0); HEMATOCRIT 33.9 % (37.0-47.0); HEMOGLOBIN 12.2 gm/dl (12.0-16.0); IMMATURE GRAN ABSOLUTE AUTO 0.03 K/mm3 (0.00-0.05); IMMATURE GRAN PERCENT AUTO 0.3 % (0.0-0.4); LYMPHOCYTES PERCENT AUTO 19.4 % (24.0-44.0); MEAN PLATELET VOLUME 9.7 fl (9.4-12.3); MONOCYTES ABSOLUTE AUTO 1.2 K/mm3 (0.0-0.8); MONOCYTES PERCENT AUTO 11.2 % (0.0-8.0); NEUTROPHILS ABSOLUTE AUTO 7.2 K/mm3 (1.8-7.7); NEUTROPHILS PERCENT AUTO 68.8 % (41.0-71.0); PLATELET COUNT,PLT 196 K/mm3 (150-400); RED BLOOD CELL COUNT 3.39 M/mm3 (4.10-5.30); WHITE BLOOD CELL COUNT,WBC 10.42 K/mm3 (3.9-11.3)
[2023-02-24 18:42] LABS: A/G RATIO 0.6 (1-2); ALBUMIN 2.6 g/dl (3.4-5.0); ANION GAP 13.3 (5-15); BILIRUBIN TOTAL 0.6 mg/dL (0.2-1.0); BUN/CREATININE RATIO 16.3 (14-18); CALCIUM 8.2 mg/dL (8.5-10.1); CREATININE 0.8 mg/dL (0.55-1.02); EST CRCL DRUG DOSING (CG) 60.43 mL/min; MAGNESIUM 1.6 mg/dL (1.8-2.4); PROTEIN TOTAL,TP 6.8 g/dl (6.4-8.2); TSH 1.486 uIU/mL (0.358-3.74)
[2023-02-24 18:44] LABS: POTASSIUM,K 3.3 mEq/L (3.5-5.1)
[2023-02-24 19:09] LABS: LACTIC ACID 0.3 mmol/L (0.4-2.0)
[2023-02-24 20:14] LABS: APPEARANCE,URINE CLEAR (Clear); BILIRUBIN,URINE NEGATIVE (Negative); COLOR,URINE YELLOW (Yellow); GLUCOSE,URINE NEGATIVE (Negative); KETONES,URINE NEGATIVE (Negative); LEUKOCYTE ESTERASE,URINE 2+ (Negative); NITRITE,URINE NEGATIVE (Negative); OCCULT BLOOD,URINE TRACE-INTACT (Negative); PH,URINE 6.5 (5.0-8.0); PROTEIN,URINE NEGATIVE (Negative); UROBILINOGEN,URINE 0.2 (0.2-1.0)
[2023-02-24 20:23] LABS: BACTERIA,URINE FEW /hpf (FEW); MUCUS,URINE FEW /hpf (FEW); RBC,URINE 0-5 /hpf (0-5); SQUAMOUS EPITHELIAL CELLS,UR 0-5 /hpf (0-5); WBC,URINE 20-30 /hpf (0-5)
[2023-02-24 20:35] VITALS: BP 96/49; PULSE 80
== END 2023-02-24 20:36 | disposition home or self-care (01) ==
LOC: JD.ED 17:23
DX: E87.1 Hypo-osmolality and hyponatremia (principal); E86.0 Dehydration; E78.00 Pure hypercholesterolemia, unspecified; K21.9 Gastro-esophageal reflux disease without esophagitis; E03.9 Hypothyroidism, unspecified; Z91.048 Other nonmedicinal substance allergy status; Z91.018 Allergy to other foods; Z88.5 Allergy status to narcotic agent; Z79.899 Other long term (current) drug therapy
CPT/HCPCS: 36415; 71045; 80053; 81001; 83605; 83735; 83880; 84443; 84484; 85025; 85379; 86140; 93005; 96360; 99285; J7030; 99282